=== PATIENT | female | born 1945 | race Caucasian/White ===

== ENCOUNTER 2021-07-13 10:07 | Emergency (ER) | payer MEDICARE, SELFPAY ==
[2021-07-13 10:20] VITALS: BP 142/79; PULSE 86; RESP 16; TEMP 37.1; O2SAT 98
--- NOTE | 2021-07-13 10:43 | ED.URI ---
HPI - URI/Sore Throat General Chief Complaint: Upper Respiratory Infection Stated Complaint: Sore Throat,Congestion Time Seen by Provider: 07/13/21 10:36 Source: patient and RN notes reviewed Mode of arrival: ambulatory Limitations: no limitations History of Present Illness HPI Narrative: Patient presents today complaining of a sore throat and cough x3 days. Denies fever, shortness of breath, congestion, rhinorrhea, body aches or headache. She has been taking sinus medication and throat spray with some relief. She is currently pain-free. MD elicited complaint: cough and sore throat Related Data Home Medications Medication Instructions Recorded Confirmed amlodipine 07/13/21 cyclobenzaprine mg 07/13/21 lisinopril 07/13/21 methimazole 07/13/21 rosuvastatin mg 07/13/21 Allergies Allergy/AdvReac Type Severity Reaction Status Date / Time No Known Drug Allergies Allergy Unknown Verified 08/07/17 18:19 Review of Systems Review of Systems: CONSTITUTIONAL: Denies body aches, fever, chills, or sweats. EYES: Denies visual changes, redness, or discharge. ENT: Denies rhinorrhea, congestion, or otalgia.+ Sore throat CARDIOVASCULAR: Denies chest pain, palpitations, or edema. RESPIRATORY: Denies dyspnea.+ Cough GASTROINTESTINAL: Denies abdominal pain, nausea, vomiting, or diarrhea. GENITOURINARY: Denies dysuria or hematuria. SKIN: Denies rash, itching, or wounds. MUSCULOSKELETAL: Denies back pain, joint pain, or myalgia. NEUROLOGIC: Denies headache, numbness, tingling, or weakness. PSYCH: Denies depression or anxiety. PMFSH Comments At time of signature, I have reviewed and agree with nursing past medical, surgical, social and family history unless otherwise noted. Please see nursing chart for further information. There is no relevant family history pertinent to the presenting complaint Exam Narrative: GENERAL: Well-appearing, well-nourished, and in no acute distress. HEAD: Normocephalic, atraumatic. EYES: EOMI. No redness or drainage. Conjunctivae normal. ENT: Mucous membranes pink and moist. Nares clear. No rhinorrhea. TMs normal bilaterally. Throat mildly erythematous without edema or exudate. Uvula midline. NECK: Normal AROM. Supple. No lymphadenopathy. CHEST: No respiratory distress. Clear to auscultation. HEART: Regular rate and rhythm. No murmur appreciated. Normal peripheral pulses. EXTREMITIES: Normal range of motion. No edema. SKIN: Warm, dry, no rash. Capillary refill normal. Normal skin turgor. NEURO: No focal deficits. Alert and oriented x3. Gait steady. PSYCH: Normal affect. No signs of depression or anxiety. Course Course Level of Care: Express Care Visit Vital Signs Vital signs: Vital Signs Temperature 98.7 F 07/13/21 10:20 Pulse Rate 86 07/13/21 10:20 Respiratory Rate 16 07/13/21 10:20 Blood Pressure 142/79 H 07/13/21 10:20 Pulse Oximetry 98 07/13/21 10:20 Temperature 98.7 F 07/13/21 10:20 Pulse Rate 86 07/13/21 10:20 Respiratory Rate 16 07/13/21 10:20 Blood Pressure 142/79 H 07/13/21 10:20 Pulse Oximetry 98 07/13/21 10:20 Reviewed. Pt has been instructed to follow up with her PCP regarding her elevated blood pressure today. MDM - URI/Sore Throat Differential Diagnosis Differential diagnosis: Likely upper respiratory infection, viral infection and other (Strep throat, COVID-19) Lab Data Attestation: I reviewed the patient's lab results. Lab results narrative: COVID-19 positive Labs: Strep Screen Presumptive Negative *(Reference Range: Negative)* Critical Care Time Critical Care Time Critical Care Time: No Discharge Plan Discharge Clinical Impression: COVID-19 Patient Disposition: Home, Self-Care Condition: Stable Instructions: COVID-19 (Coronavirus Disease 2019) (ED) Additional Instructions: You have tested positive for COVID-19. This requires 5 days of quaran
== END 2021-07-13 11:03 | disposition home or self-care (01) ==
PROVIDERS: Emergency Provider Nurse Practitioner
DX: U07.1 COVID-19 (principal); E78.00 Pure hypercholesterolemia, unspecified; I10 Essential (primary) hypertension
CPT/HCPCS: 87081; 87426; 87880; 99213; C9803; G0463

== ENCOUNTER → 2023-03-20 10:57 | Outpatient (CLI) | payer MEDICARE, SELFPAY ==
--- NOTE | ~2023-03-20 | XR_ITS ---
Left Knee Technique: AP, lateral, and sunrise views were obtained. Clinical History: Pain Findings: No fracture or dislocation is seen. Osseous alignment is anatomic. Joint minimal spurring a t the medial joint line and patella noted. Soft tissues are unremarkable. No joint effusion is seen. Impression: Minimal spurring, as above. Reviewed, dictated and finalized at location M. Impression: Minimal spurring, as above.
--- NOTE | ~2023-03-20 | XR_ITS ---
EXAMINATION:XR cervical spine 4-5V DATE: 03/20/2023 11:32 INDICATION: Neck pain TECHNIQUE: AP, lateral, lateral swimmers and odontoid views of the cervical spine are provided. COMPARISON: CT, 06/30/2016 FINDINGS: Alignment is normal. The odontoid process is intact. No fracture is identified. There are c hanges of anterior fusion at C5-6. There is chronic mild loss of vertebral body height at C4. There i s severe loss of intervertebral disc space height at C6-7. Prevertebral soft tissues are normal. Surg ical clips are noted in the right neck soft tissues. IMPRESSION: 1. Moderate cervical spondylosis without acute findings or significant interval change. Reviewed, dictated and finalized at location B.
== END ==
DX: M43.02 Spondylolysis, cervical region (principal); Z98.890 Other specified postprocedural states
CPT/HCPCS: 72050; 73564